=== PATIENT | female | born 1990 | race Caucasian/White ===

== ENCOUNTER 2017-09-04 16:23 | Emergency (ER) | payer BC, OTHER ==
[2017-09-04 17:00] VITALS: BP 102/66
--- NOTE | 2017-09-04 17:19 | UC ---
Throat Pain/Nasal Dar HPI - HPI Summary HPI Summary: Pt c/o nasal congestion, sinus pressure, cough, and PND X 2 days. Pt was treated 2 weeks ago for sinusitis with antibiotic. - History of Current Complaint Chief Complaint: UCRespiratory Stated Complaint: SINUS Time Seen by Provider: 09/04/17 16:57 Hx Obtained From: Patient Hx Last Menstrual Period: 08/10/17 ?: No Onset/Duration: Sudden Onset, Lasting Days, Still Present Severity: Moderate Associated Signs & Symptoms: Positive: Sinus Discomfort - Allergies/Home Medications Allergies/Adverse Reactions: Allergies Allergy/AdvReac Type Severity Reaction Status Date / Time No Known Allergies Allergy Verified 09/04/17 17:00 PMH/Surg Hx/FS Hx/Imm Hx Previously Healthy: Yes - Surgical History Surgical History: Yes Surgery Procedure, Year, and Place: APP. D&E - Family History Known Family History: Positive: Cardiac Disease - Social History Occupation: Employed Full-time Lives: With Family Alcohol Use: None Substance Use Type: None Smoking Status (MU): Former Smoker Have You Smoked in the Last Year: No Review of Systems Constitutional: Chills, Fatigue Skin: Negative Eyes: Negative ENT: Sore Throat, Sinus Congestion Respiratory: Cough Cardiovascular: Negative Gastrointestinal: Negative Genitourinary: Negative Motor: Negative Neurovascular: Negative Musculoskeletal: Negative Neurological: Headache Psychological: Negative Is Patient Immunocompromised?: No All Other Systems Reviewed And Are Negative: Yes Physical Exam Triage Information Reviewed: Yes Appearance: Ill-Appearing Vital Signs: Initial Vital Signs Temp 98.3 F 09/04/17 16:55 Pulse 84 09/04/17 16:55 Resp 18 09/04/17 16:55 BP 102/66 09/04/17 16:55 Pulse Ox 99 09/04/17 16:55 Vital Signs Reviewed: Yes Eye Exam: Normal ENT Exam: Other ENT: Positive: Nasal congestion, Sinus tenderness Dental Exam: Normal Neck exam: Normal Respiratory Exam: Normal Cardiovascular Exam: Normal Musculoskeletal Exam: Normal Neurological Exam: Normal Psychological Exam: Normal Skin Exam: Normal Throat Pain/Nasal Course/Dx - Differential Dx/Diagnosis Differential Diagnosis/HQI/PQRI: Influenza, Otitis Media, Sinusitis, URI Provider Diagnoses: viral syndrome. URI Discharge - Discharge Plan Condition: Stable Disposition: HOME Prescriptions: Pseudoephedrine-Guaifenesin [Mucinex D 60-600 mg] 1 tab PO DAILY #10 tab Patient Education Materials: Viral Syndrome (ED) Forms: *Work Release Referrals: Dalila Aparicio MD [Primary Care Provider] - If Needed
== END 2017-09-04 17:34 | disposition home or self-care (01) ==
LOC: UCCORT 16:23
DX: B34.9 Viral infection, unspecified (principal); J06.9 Acute upper respiratory infection, unspecified; Z87.891 Personal history of nicotine dependence
CPT/HCPCS: 99212; G0463